=== PATIENT | female | born 2000 | race Two or more races ===

== ENCOUNTER 2025-05-24 12:01 | Emergency (ER) | payer MEDICAID, SELFPAY ==
[2025-05-24 12:20] VITALS: BP 129/88; PULSE 74; RESP 16; TEMP 36.7; O2SAT 98; BMI 25.7
--- NOTE | 2025-05-24 12:25 | XR_ITS ---
Examination: OB Transvaginal ultrasound of the pelvis, complete Technique: Transvaginal sonographic images pelvis performed using wyman scale imaging Exam date and time: May 24, 2025, 1335 hours INDICATIONS: Vaginal bleeding and cramping beginning 2 days ago FINDINGS: Uterus 9.3 cm CRL 1.2 cm corresponds to 7 weeks 2 days gestational age No cardiac motion Yolk sac is present Subchorionic hemorrhage in the lower uterine segment 16 x 13 x 24 mm Right ovary 3.1 cm arterial flow Left ovary 3.9 cm arterial flow IMPRESSION: Intrauterine gestation corresponding to 7 weeks 2 days gestational age, no cardiac motion Recommend continued short-term follow-up transvaginal pelvic sonography to exclude embryonic demise.
[2025-05-24 13:02] LABS: Basophils # (Auto) 0.0 Thou/mm3 (0.0-0.2); Basophils % (Auto) 0 % (0-2.5); Eosinophils # (Auto) 0.1 Thou/mm3 (0.0-0.5); Eosinophils % (Auto) 1 % (0-10); Hematocrit 41.6 % (36.0-46.0); Hemoglobin 14.2 g/dL (12.0-16.0); Immature Granulocytes Auto 0.02 Thou/mm3 (0.00-0.00); Lymphocytes # (Auto) 2.0 Thou/mm3 (1.0-4.8); Lymphocytes % (Auto) 18 % (10-50); Mean Corpuscular HGB Conc 34.1 g/dl (31.0-37.0); Mean Corpuscular Hemoglobin 30.3 pg (25.0-35.0); Mean Corpuscular Volume 89 fL (80-100); Monocytes # (Auto) 0.7 Thou/mm3 (0.0-0.8); Monocytes % (Auto) 6 % (0-12); Neutrophils # (Auto) 8.8 Thou/mm3 (1.8-7.7); Neutrophils % (Auto) 76 % (37-80); Nucleated Red Blood Cell # 0.00 Thou/mm3 (0.00-0.00); Nucleated Red Blood Cell % 0 /100 WBC (0); Platelet Count 258 Thou/mm3 (140-440); RDW Standard Deviation 39.7 fL (36.4-46.3); Red Blood Count 4.69 Miln/mm3 (4.00-5.20); White Blood Count 11.6 Thou/mm3 (3.6-11.0)
[2025-05-24 13:45] LABS: Alanine Aminotransferase 16 U/L (10-49); Albumin, Serum 5.3 gm/dL (3.5-5.0); Albumin/Globulin Ratio 2.1 (1.2-2.2); Alkaline Phosphatase 58 U/L (46-116); Anion Gap 10 (7-16); Aspartate Amino Transferase 17 U/L (0-34); BUN/Creatinine Ratio 13 Ratio (12-20); Bilirubin,Total 0.8 mg/dL (0.3-1.2); Blood Urea Nitrogen 9 mg/dL (9-23); Calcium 9.8 mg/dL (8.3-10.6); Calcium (Corrected) 9.8 mg/dL (8.5-10.1); Carbon Dioxide 26.4 mMol/L (20.0-31.0); Chloride 104 mMol/L (98-107); Creatinine (Component) 0.7 mg/dL (0.6-1.3); Estimated Creatinine Clearance 114.4 mL/min (>60); Globulin 2.5 gm/dL (2.3-3.5); Glucose 99 mg/dL (74-106); Osmolality,Calculated 278 (275-295); Potassium 3.6 mMol/L (3.4-5.1); Sodium 140 mMol/L (136-145); Total Protein 7.8 gm/dL (5.7-8.2); eGFR > 60 See Note
[2025-05-24 13:54] LABS: Beta HCG,Quantitative 12649 mIU/mL (<5.0)
--- NOTE | 2025-05-24 14:27 | EDNOTE_ITS ---
<Statement entered by Tessie Zaman MD - 06/03/25 06:30> As co-signing physician, I was present and available for consult prn. I concur with the plan and care as documented by the midlevel provider. ED OB Contraction Preg RMI/HPI General Chief complaint: Vaginal Bleeding Stated complaint: VAGINAL BLEEDING/CRAMPING; PREG 11WKS Time Seen by Provider: 05/24/25 12:06 Arrival date/time: 05/24/25 12:01 25-year-old female presents to the emergency department today for complaint of vaginal bleeding patient is G2 A1 P0 Limitations: no limitations Related Data Home Medications ?Medication ?Instructions ?Recorded ?Confirmed No Known Home Medications 12/19/1911/21 Allergies Allergy/AdvReac Type Severity Reaction Status Date / Time No Known Allergies Allergy Verified 05/24/25 12:04 Review of Systems Review of Systems Systems Reviewed: All systems reviewed, normal except as documented Constitutional Constitutional: Reports system reviewed and no additional complaints, except as documented, Denies fever(s) and Denies headache(s) Eyes Eyes: Reports system reviewed and no additional complaints, except as documented and Denies blurry vision ENT Ears, Nose, Mouth, and Throat: Reports system reviewed and no additional complaints, except as documented, Denies headache(s), Denies nasal congestion and Denies nasal discharge Cardiovascular Cardiovascular: Reports system reviewed and no additional complaints, except as documented, Denies chest pain and Denies dyspnea Respiratory Respiratory: Reports system reviewed and no additional complaints, except as documented, Denies chest congestion, Denies cough and Denies dyspnea Gastrointestinal Gastrointestinal: Reports system reviewed and no additional complaints, except as documented and Denies abdominal pain Genitourinary Genitourinary: Reports system reviewed and no additional complaints, except as documented and Reports abnormal vaginal bleeding Integumentary/Breasts Skin/Breast: Reports system reviewed and no additional complaints, except as documented and Denies rash Neurologic Neurologic: Reports system reviewed and no additional complaints, except as documented, Reports as per HPI and Denies headache(s) Past Medical History Past Medical History CARDIAC: Negative Congestive Heart Failure RESPIRATORY: Negative Chronic Obstructive Pulmonary Disease (COPD) GENITOURINARY: Negative Renal Disease ENDOCRINE: Negative Diabetes Mellitus Type 1 or Diabetes Mellitus Type 2 Social History SMOKING STATUS: Never smoker ED Exam General Limitations: Present no limitations General appearance: Present alert and in no apparent distress Head Head exam: Present atraumatic, normocephalic and normal inspection Eye Eye exam: Present normal appearance, PERRL and EOMI; Absent conjunctival injection ENT ENT exam: Present normal exam, normal oropharynx and mucous membranes moist Neck Neck exam: Present normal inspection, full ROM and trachea midline Chest Chest inspection: Present normal inspection and symmetric chest wall rise Respiratory Respiratory exam: Present normal lung sounds bilaterally Cardiovascular Cardiovascular exam: Present regular rate, normal rhythm and normal heart sounds Abdominal Exam Abdominal exam: Present soft and normal bowel sounds; Absent distention or tenderness Extremities Exam Extremities exam: Present normal inspection and full ROM Back Exam Back exam: Present normal inspection and full ROM Neurological Exam Neurological exam: Present alert, oriented X3 and CN II-XII intact Psychiatric Psychiatric exam: Present normal affect and normal mood Skin Skin exam: Present warm, dry, intact and normal color Course Quality Measures none Orders Category Date Time Status US OB transvaginal Stat Exams 05/24/25 12:25 Completed ABO/RH Type Stat Lab 05/24/25 12:40 Completed Beta HCG,Quantitative Stat Lab 05/24/25 12:40 Completed CBC Stat Lab 05/24/25 12:40 Completed Comprehensive Metabolic Panel Stat Lab 05/24/25 12:40 Completed Vital Signs Vital signs: Vital Signs Temperature 98.0 F 05/24/25 12:20 Pulse Rate 74 05/24/25 12:20 Respiratory Rate 16 05/24/25 12:20 Blood Pressure 129/88 H 05/24/25 12:20 Pulse Oximetry (%) 98 05/24/25 12:20 Oxygen Delivery Method Room Air 05/24/25 12:20 O2 saturation 98% room air within normal limits Vaginal Bleeding MDM Narrative MDM Narrative: 25-year-old female presents to the emergency department today for complaint of vaginal bleeding patient is G2 A1 P0 Clinically patient well-appearing does not appear look toxic no acute distress Lab work imaging obtained hCG is 12,649 IMPRESSION: Intrauterine gestation corresponding to 7 weeks 2 days gestational age, no cardiac motion Recommend continued short-term follow-up transvaginal pelvic sonography to exclude embryonic demise. I suspect based on patient's presentation as well as ultrasound findings that she is having a miscarriage I did explain to the patient she should have repeat lab work ultrasound in 2 to 3 days. Patient states understanding Explained the patient should she have increased bleeding or pain to return immediately for further evaluation Patient discharged home in no distress to follow-up with primary care doctor in the next 24 to 48 hours and for any worsening symptoms to return to the ER immediately Patient data External records reviewed:: [facility] previous records Clinical information provided by:: patient Social determinants that could affect healthcare access:: none Patient has the following chronic illnesses:: None How is presenting disease/condition affected by chronic disease/condition?: no chronic disease Evaluation data The following diagnostics were reviewed and interpreted by me:: lab results and radiology exam(s) Lab and/or radiology exams considered but not ordered:: Labs radiology obtained Interpretation Summary: reviewed by me Medications / Prescriptions Medications or Prescriptions considered but not ordered:: Given no meds Medication administrations:: Given no meds Consultations Consultation(s) initiated? (list below): No Diagnosis Vaginal Bleeding Differential Diagnosis: missed and threatened Most likely diagnosis given after review of the tests above:: Vaginal bleeding Admission Indicated Admission indicated?: not indicated Admission Request Was there a request for admission?: No Disposition Plan Disposition Plan: Discharge Discharge Attestation Discharge Attestation: The patient and all family members were given an opportunity to ask questions and understood the discharge instructions. Discharge instructions specifically effects, indications for sooner follow up or return to the emergency department, and the expected course of current diagnosis. Patient condition: Stable Discharge Plan Plan Patient Disposition: HOME (Self Care) Discharge Disposition comment: Stable Prescriptions/Referrals Prescriptions/Med Rec: No Action No Known Home Medications Referrals: Nery Knight NP [Primary Care Provider] - In 1 week Problem List Clinical Impression: , threatened Patient/Caregiver Discharge Instructions Education Materials: Understanding Miscarriage ... Additional Instructions: Please return in 2 to 3 days for repeat lab work and ultrasound For significant bleeding or pain return immediately Your hCG is 12,649 Print Language: French Stand Alone Forms: Rebekah Award Info., Work/School Release, Patient Portal Info Letter PA/LESIA Supervising Physician PA/LESIA Supervising Physician: dr zaman
== END 2025-05-24 14:43 | disposition home or self-care (01) ==
PROVIDERS: Nurse Practitioner Primary Care; Emergency Provider Emergency Medicine
DX: O20.0 Threatened abortion (principal); Z3A.01 Less than 8 weeks gestation of pregnancy
CPT/HCPCS: 36415; 76817; 80053; 84702; 85025; 86900; 86901; 99283

== ENCOUNTER 2025-05-26 11:04 | Emergency (ER) | payer MEDICAID, SELFPAY ==
[2025-05-26 11:04] VITALS: BMI 25.7
[2025-05-26 11:32] VITALS: BP 123/76; PULSE 74; RESP 17; TEMP 36.7; O2SAT 97
--- NOTE | 2025-05-26 11:39 | XR_ITS ---
Examination: OB Transvaginal ultrasound of the pelvis, complete Technique: Transvaginal sonographic images pelvis performed using wyman scale imaging Exam date and time: May 26, 2025, 1216 hours INDICATIONS: Pelvic sonogram May 24, 2025 intrauterine gestation 7 weeks 2 days no cardiac motion, subchorionic hemorrhage FINDINGS: Uterus 8.1 cm Intrauterine gestation pole 1.0 cm corresponds to 7 weeks 1 day gestational age No cardiac motion Right ovary 2.7 cm arterial flow Left ovary 3.0 cm arterial flow IMPRESSION: Intrauterine gestation corresponding to 7 weeks 1 day gestational age, however, no cardiac motion, recommend short-term follow-up transvaginal pelvic sonography.
--- NOTE | 2025-05-26 11:39 | EDNOTE_ITS ---
ED OB Contraction Preg RMI/HPI General Chief complaint: Recheck/Abnormal Lab/Rx Stated complaint: TOLD TO COME BACK TO REPEAT US Time Seen by Provider: 05/26/25 11:11 Source: patient Arrival date/time: 05/26/25 11:04 Mode of arrival: ambulatory Limitations: no limitations Related Data Home Medications ?Medication ?Instructions ?Recorded ?Confirmed No Known Home Medications 12/19/1911/21 Allergies Allergy/AdvReac Type Severity Reaction Status Date / Time No Known Allergies Allergy Verified 05/26/25 11:07 Review of Systems Review of Systems Systems Reviewed: All systems reviewed, normal except as documented Constitutional Constitutional: Reports system reviewed and no additional complaints, except as documented, Denies fatigue, Denies fever(s), Denies headache(s) and Denies weakness Eyes Eyes: Reports system reviewed and no additional complaints, except as documented, Denies blurry vision and Denies change in vision ENT Ears, Nose, Mouth, and Throat: Reports system reviewed and no additional complaints, except as documented, Denies otalgia, Denies headache(s), Denies nasal congestion, Denies throat swelling and Denies vertigo Cardiovascular Cardiovascular: Reports system reviewed and no additional complaints, except as documented, Denies chest pain, Denies dyspnea and Denies dyspnea on exertion Respiratory Respiratory: Reports system reviewed and no additional complaints, except as do cumented, Denies chest congestion, Denies cough, Denies dyspnea, Denies dyspnea on exertion and Denies wheezing Gastrointestinal Gastrointestinal: Reports system reviewed and no additional complaints, except as documented, Denies abdominal pain, Denies cramping, Denies nausea and Denies vomiting Genitourinary Genitourinary: Reports system reviewed and no additional complaints, except as documented Musculoskeletal Musculoskeletal: Reports system reviewed and no additional complaints, except as documented and Denies back pain Integumentary/Breasts Skin/Breast: Reports system reviewed and no additional complaints, except as documented and Denies wounds Neurologic Neurologic: Reports system reviewed and no additional complaints, except as documented, Denies confusion, Denies headache(s), Denies lack of coordination, Denies vertigo and Denies weakness Psychiatric Psychiatric: Reports system reviewed and no additional complaints, except as documented, Denies anxiety, Denies confusion, Denies depression, Denies paranoia, Denies suicidal ideation and Denies tactile hallucinations Endocrine Endocrine: Reports system reviewed and no additional complaints, except as documented and Denies fatigue Hematologic/Lymphatic Hematologic/Lymphatic: Reports system reviewed and no additional complaints, except as documented and Denies lymphadenopathy Allergic/Immunologic Allergic/Immunologic: Reports system reviewed and no additional complaints, except as documented, Denies throat swelling, Denies urticaria and Denies wheezing Past Medical History Past Medical History CARDIAC: Negative Congestive Heart Failure RESPIRATORY: Negative Chronic Obstructive Pulmonary Disease (COPD) GENITOURINARY: Negative Renal Disease ENDOCRINE: Negative Diabetes Mellitus Type 1 or Diabetes Mellitus Type 2 Social History SMOKING STATUS: Never smoker ED Exam General Limitations: Present no limitations General appearance: Present alert and in no apparent distress Head Head exam: Present atraumatic Eye Eye exam: Present normal appearance, PERRL and EOMI ENT ENT exam: Present normal exam, normal oropharynx and mucous membranes moist Neck Neck exam: Present normal inspection, full ROM and trachea midline Chest Chest inspection: Present normal inspection and symmetric chest wall rise Respiratory Respiratory exam: Present normal lung sounds bilaterally Cardiovascular Cardiovascular exam: Present regular rate, normal rhythm and normal heart sounds Abdominal Exam Abdominal exam: Present soft and normal bowel sounds; Absent distention, tenderness, guarding, rebound or rigidity Extremities Exam Extremities exam: Present normal inspection and full ROM Back Exam Back exam: Present normal inspection and full ROM Neurological Exam Neurological exam: Present alert, oriented X3 and CN II-XII intact Psychiatric Psychiatric exam: Present normal affect and normal mood Skin Skin exam: Present warm, dry, intact and normal color Course Quality Measures none Orders Category Date Time Status US OB transvaginal Stat Exams 05/26/25 11:39 Completed ABO/RH Type Stat Lab 05/26/25 11:59 Completed Beta HCG,Quantitative Stat Lab 05/26/25 11:59 Completed CBC Stat Lab 05/26/25 11:59 Completed CMP [Comprehensive Metabolic Panel] Stat Lab 05/26/25 11:59 Completed UA [Urinalysis] Stat Lab 05/26/25 12:35 Completed Vital Signs Vital signs: Vital Signs Temperature 98.1 F 05/26/25 11:32 Pulse Rate 74 05/26/25 11:32 Respiratory Rate 17 05/26/25 11:32 Blood Pressure 123/76 05/26/25 11:32 Pulse Oximetry (%) 97 05/26/25 11:32 Oxygen Delivery Method Room Air 05/26/25 11:32 Vaginal Bleeding MDM Narrative MDM Narrative: 25-year-old female with no known medical history presents to the emergency room with a chief complaint of vaginal bleeding and abdominal cramping x 4 days. Patient is a . Patient states she is currently 11 weeks . Patient is hemodynamically stable and in no apparent distress Physical examination shows a soft nontender abdomen. Patient states she is having some vaginal bleeding. OB ultrasound was completed and shows an intrauterine gestation corresponding to 7 weeks and 1 day and gestational age. There is no cardiac motion there is no heart tones there is no pole. Patient's hCG levels on 05/22/2025 were 12,694. Patient's hCG levels today were at 7948. Dr. Tolbert the FIELD EDUCATION DIRECTOR on- call was consulted and his recommendations were to discharge the patient and gore ve him follow-up Thursday at the [facility] where he will see the patient. Patient has a normal hemoglobin and hematocrit Patient was discharged and educated to follow-up with primary care provider in the next 24 to 48 hours and return to the emergency room for any evidence of worsening signs or symptoms Patient data External records reviewed:: [facility] previous records Clinical information provided by:: patient Social determinants that could affect healthcare access:: none Patient has the following chronic illnesses:: No chronic illness How is presenting disease/condition affected by chronic disease/condition?: no chronic disease Evaluation data The following diagnostics were reviewed and interpreted by me:: lab results and radiology exam(s) Lab and/or radiology exams considered but not ordered:: Labs and radiology exams considered and ordered Interpretation Summary: Ultrasound OB-FINDINGS: Uterus 8.1 cm Intrauterine gestation pole 1.0 cm corresponds to 7 weeks 1 day gestational age No cardiac motion Right ovary 2.7 cm arterial flow Left ovary 3.0 cm arterial flow IMPRESSION: Intrauterine gestation corresponding to 7 weeks 1 day gestational age, however, no cardiac motion, recommend short-term follow-up transvaginal pelvic sonography. Medications / Prescriptions Medications or Prescriptions considered but not ordered:: No medication given Medication administrations:: No medication given Consultations Consultation(s) initiated? (list below): No Diagnosis Vaginal Bleeding Differential Diagnosis: missed , threatened , vaginal bleeding and other (Subchorionic hemorrhage/spontaneous ) Most likely diagnosis given after review of the tests above:: Spontaneous Admission Indicated Admission indicated?: not indicated Admission Request Was there a request for admission?: No Disposition Plan Disposition Plan: Discharge Discharge Attestation Discharge Attestation: The patient and all family members were given an opportunity to ask questions and understood the discharge instructions. Discharge instructions specifically effects, indications for sooner follow up or return to the emergency department, and the expected course of current diagnosis. Patient condition: Stable Discharge Plan Plan Patient Disposition: HOME (Self Care) Discharge Disposition comment: Stable Prescriptions/Referrals Prescriptions/Med Rec: No Action No Known Home Medications Referrals: [facility] [Outside, FIELD EDUCATION DIRECTOR] - 05/30/25 Referral Note: Dr. Tolbert Problem List Clinical Impression: Vaginal bleeding affecting early , Spontaneous Patient/Caregiver Discharge Instructions Education Materials: Understanding Miscarriage ..., Bleeding During Early Additional Instructions: Please follow-up with your FIELD EDUCATION DIRECTOR in the next 24 to 48 hours I made an appointment for you to see Dr. Tolbert or OB this Thursday at the [facility] For any evidence of worsening signs or symptoms please return to the emergency room immediately Print Language: Upper Sorbian Stand Alone Forms: Rebekah Award Info., Work/School Release, Patient Portal Info Letter PA/MERCHANDISE STOCKER Supervising Physician ADRIANA/LESIA Supervising Physician: Dr. Payan
[2025-05-26 12:23] LABS: Basophils # (Auto) 0.0 Thou/mm3 (0.0-0.2); Basophils % (Auto) 0 % (0-2.5); Eosinophils # (Auto) 0.2 Thou/mm3 (0.0-0.5); Eosinophils % (Auto) 2 % (0-10); Hematocrit 39.6 % (36.0-46.0); Hemoglobin 13.5 g/dL (12.0-16.0); Immature Granulocytes Auto 0.03 Thou/mm3 (0.00-0.00); Lymphocytes # (Auto) 1.9 Thou/mm3 (1.0-4.8); Lymphocytes % (Auto) 22 % (10-50); Mean Corpuscular HGB Conc 34.1 g/dl (31.0-37.0); Mean Corpuscular Hemoglobin 30.3 pg (25.0-35.0); Mean Corpuscular Volume 89 fL (80-100); Monocytes # (Auto) 0.6 Thou/mm3 (0.0-0.8); Monocytes % (Auto) 7 % (0-12); Neutrophils # (Auto) 6.0 Thou/mm3 (1.8-7.7); Neutrophils % (Auto) 69 % (37-80); Nucleated Red Blood Cell # 0.00 Thou/mm3 (0.00-0.00); Nucleated Red Blood Cell % 0 /100 WBC (0); Platelet Count 251 Thou/mm3 (140-440); RDW Standard Deviation 39.9 fL (36.4-46.3); Red Blood Count 4.46 Miln/mm3 (4.00-5.20); White Blood Count 8.7 Thou/mm3 (3.6-11.0)
[2025-05-26 12:43] LABS: Alanine Aminotransferase 14 U/L (10-49); Albumin, Serum 5.2 gm/dL (3.5-5.0); Albumin/Globulin Ratio 2.0 (1.2-2.2); Alkaline Phosphatase 57 U/L (46-116); Anion Gap 11 (7-16); Aspartate Amino Transferase 18 U/L (0-34); BUN/Creatinine Ratio 11 Ratio (12-20); Bilirubin,Total 0.9 mg/dL (0.3-1.2); Blood Urea Nitrogen 8 mg/dL (9-23); Calcium 10.0 mg/dL (8.3-10.6); Calcium (Corrected) 10.0 mg/dL (8.5-10.1); Carbon Dioxide 24.8 mMol/L (20.0-31.0); Chloride 105 mMol/L (98-107); Creatinine (Component) 0.7 mg/dL (0.6-1.3); Estimated Creatinine Clearance 114.4 mL/min (>60); Globulin 2.6 gm/dL (2.3-3.5); Glucose 104 mg/dL (74-106); Osmolality,Calculated 279 (275-295); Potassium 3.9 mMol/L (3.4-5.1); Sodium 141 mMol/L (136-145); Total Protein 7.8 gm/dL (5.7-8.2); eGFR > 60 See Note
[2025-05-26 12:58] LABS: Collection Type, Urine Clean Catch
[2025-05-26 13:00] LABS: Beta HCG,Quantitative 7984 mIU/mL (<5.0)
[2025-05-26 13:04] LABS: Bacteria,Urine Rare; Bilirubin,Urine Negative (Negative); Blood,Urine 2+ (Negative); Color,Urine Yellow (Lt Yel-Yel); Glucose, Urine Negative (Negative); Ketones,Urine Negative (Negative); Leukocyte Esterase,Urine Negative (Negative); Nitrite,Urine Negative (Negative); PH,Urine 7.0 (5.0-7.0); Protein,Urine 1+ (Neg - Trace); RBC,Urine 9 /hpf (0-3); Specific Gravity,Urine 1.033 (1.001-1.035); Squamous Epithelial Cell,Urine 16 /hpf (0-5); Urobilinogen,Urine Negative mg/dL (0.0-1.0); WBC,Urine 2 /hpf (0-5)
[2025-05-26 13:05] LABS: Clarity,Urine Hazy (Clear/Hazy)
== END 2025-05-26 13:42 | disposition home or self-care (01) ==
PROVIDERS: Emergency Provider Nurse Practitioner Family
DX: O02.1 Missed abortion (principal)
CPT/HCPCS: 36415; 76817; 80053; 81001; 84702; 85025; 86900; 86901; 99283

== ENCOUNTER → 2025-05-31 | Outpatient (CLI) | payer MEDICAID, SELFPAY ==
--- NOTE | 2025-05-31 13:26 | XR_ITS ---
Examination: Complete OB ultrasound, less than 14 weeks, transabdominal Date and time of exam: May 31, 2025, 1344 hours INDICATIONS: Vaginal bleeding beginning 10 days ago, pelvic sonogram May 26, 2025 intrauterine gestation with pole but no cardiac activity Technique: Obstetrical ultrasound images less than 14 weeks performed via transabdominal imaging Findings: Uterus 7.2 cm, no intrauterine gestation Right ovary 2.7 cm arterial flow Left ovary 2.3 cm arterial flow IMPRESSION: No current intrauterine gestation No retained products of conception
== END | disposition home or self-care (01) ==
PROVIDERS: Referring Provider Obstetrics & Gynecology; Visit Provider Obstetrics & Gynecology
DX: O20.0 Threatened abortion (principal)
CPT/HCPCS: 76801